=== PATIENT | female | born 1980 | race Caucasian/White ===

== ENCOUNTER 2017-11-27 07:16 | Day surgery (SDC) | payer BC, OTHER ==
[~2017-11-27 07:16] MED LIST: Sodium Chloride 0.9% 10 ML Syringe FLUSH PRN; Sodium Chloride 0.9% 2.5 ML Syringe FLUSH PRN; ceFAZolin 1 GM in Premix Bag 1 BAG IV ONE
[2017-11-27] MEDS ORDERED: Ketorolac 30 MG/ML SDV ONE (07:36)
[2017-11-27] MEDS ORDERED: Glycopyrrolate 0.2 MG/ML SDV ONE (07:36)
[2017-11-27] MEDS ORDERED: Lidocaine 2% 5 ML SDV ONE (07:36)
[2017-11-27] MEDS ORDERED: Ondansetron 4 MG/2 ML SDV ONE (07:36)
[2017-11-27] MEDS ORDERED: Rocuronium 10 MG/ML 10 ML Syringe ONE (07:36)
[2017-11-27] MEDS ORDERED: fentaNYL 250 MCG/5 ML SDV ONE (07:37)
[2017-11-27] MEDS ORDERED: Midazolam 1 MG/ML 2 ML SDV ONE (07:37)
[2017-11-27] MEDS ORDERED: Sugammadex Sodium 200 MG/2 ML VIAL ONE (07:38)
[2017-11-27] MEDS ORDERED: Propofol 200 MG/20 ML SDV ONE (07:44)
[2017-11-27] MEDS ORDERED: Scopolamine 1.5 MG Transdermal Patch TRDERM PRN (08:23)
[2017-11-27] MEDS ORDERED: ceFAZolin 1 GM Vial ONE (08:25)
[2017-11-27] MEDS ORDERED: Sodium Chloride 0.9% 20 ML ONE (08:26)
--- NOTE | 2017-11-27 08:27 | PCM.PREANE ---
Preanesthetic Assessment - Anesthesia/Transfusion/Family Hx Anesthesia History: Prior Anesthesia Reaction Type of Anesthesia Reaction: Excessive Nausea/Vomiting Family History of Anesthesia Reaction: No Transfusion History: No Prior Transfusion(s) - Review of Systems General: No Symptoms Pulmonary: No Symptoms Cardiovascular: No Symptoms Gastrointestinal: No Symptoms Neurological: Other (weakness RLE and leg spasms) - Physical Assessment NPO Status Date: 11/26/17 Height: 1.63 m Weight: 73.482 kg ASA Class: 2 Mental Status: Alert & Oriented x3 Airway Class: Mallampati = 1 Dentition: Reports: Normal Dentition ROM/Head Extension: Full Lungs: Clear to Auscultation, Normal Respiratory Effort Cardiovascular: Regular Rate, Regular Rhythm - Lab Values: Laboratory Last Values WBC 9.61 K/uL (4.0-11.0) 11/27/17 08:13 RBC 4.68 M/uL (4.30-5.90) 11/27/17 08:13 Hgb 15.3 g/dL (12.0-16.0) 11/27/17 08:13 Hct 44.4 % (36.0-46.0) 11/27/17 08:13 MCV 94.9 fL (80.0-98.0) 11/27/17 08:13 MCH 32.7 pg (27.0-32.0) H 11/27/17 08:13 MCHC 34.5 g/dL (31.0-37.0) 11/27/17 08:13 RDW Std Deviation 44.7 fl (28.0-62.0) 11/27/17 08:13 RDW Coeff of Selam 13 % (11.0-15.0) 11/27/17 08:13 Plt Count 318 K/uL (150-400) 11/27/17 08:13 MPV 10.00 fL (7.40-12.00) 11/27/17 08:13 Nucleated RBC % 0.0 /100WBC 11/27/17 08:13 Nucleated RBCs # 0 K/uL 11/27/17 08:13 - Allergies Allergies/Adverse Reactions: Allergies Allergy/AdvReac Type Severity Reaction Status Date / Time No Known Allergies Allergy Verified 11/21/17 15:20 - Anesthesia Plan Pre-Op Medication Ordered: Other (scop patch) - Acknowledgements Anesthesia Type Planned: General Anesthesia Pt an Appropriate Candidate for the Planned Anesthesia: Yes Alternatives and Risks of Anesthesia Discussed w Pt/Guardian: Yes Pt/Guardian Understands and Agrees with Anesthesia Plan: Yes Additional Comments: PMHL MS, chr fatigue/narcolepsy PreAnesthesia Questionnaire HEENT History: Reports: None Gastrointestinal History: Reports: None Genitourinary History: Reports: UTI, Recurrent 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: Neurological History: Reports: MS Psychiatric History: Reports: Anxiety, Depression - Past Surgical History Head Surgeries/Procedures: Reports: None HEENT Surgical History: Reports: Adenoidectomy, Tonsillectomy GI Surgical History: Reports: Cholecystectomy Female Surgical History: Reports: Breast Reduction, Endometrial Ablation, Other (See Below) Other Female Surgeries/Procedures: abdominoplasty - SUBSTANCE USE Smoking Status *Q: Never Smoker Recreational Drug Use History: No - HOME MEDS Home Medications: Home Meds Baclofen 10 mg PO TID 06/29/14 [History] PARoxetine [Paxil] 10 mg PO DAILY 06/29/14 [History] ALPRAZolam [Alprazolam] 0.5 mg PO BEDTIME 11/21/17 [History] Dexmethylphenidate HCl [Dexmethylphenidate] 10 mg PO DAILY 11/21/17 [History] Fish Oil/[place]-3 Fatty Acids [Fish Oil 1,000 MG] 1 tab PO DAILY 11/21/17 [ History] Norgestimate-Ethinyl Estradiol [Lzn-So-Exjrxa Tablet] 1 tab PO DAILY 11/21/17 [ History] Solifenacin Succinate [Vesicare] 10 mg PO DAILY 11/21/17 [History] - CURRENT (IN HOUSE) MEDS Current Meds: Current Medications Lactated Ringer's (Ringers, Lactated) 1,000 mls @ 125 mls/hr IV ASDIRECTED RIVAS Scopolamine (Transderm-Scop) 1.5 mg TRDERM Q72H PRN PRN Reason: Nausea/Vomiting Sodium Chloride (Saline Flush) 10 ml FLUSH ASDIRECTED PRN PRN Reason: Keep Vein Open Sodium Chloride (Saline Flush) 2.5 ml FLUSH ASDIRECTED PRN PRN Reason: Keep Vein Open Discontinued Medications Fentanyl (Sublimaze) Confirm Administered Dose 250 mcg .ROUTE .STK-MED ONE Stop: 11/27/17 07:38 Glycopyrrolate (Robinul) Confirm Administered Dose 0.2 mg .ROUTE .STK-MED ONE Stop: 11/27/17 07:37 Cefazolin Sodium/Dextrose 1 gm (/ Premix) 50 mls @ 100 mls/hr IV ONETIME ONE Stop: 11/27/17 05:29 Ketorolac Tromethamine (Toradol) Confirm Administered Dose 30 mg .ROUTE .STK- MED ONE Stop: 11/27/17 07:37 Lidocaine (Xylocaine-Mpf 2%) Confirm Administered Dose 5 ml .ROUTE .STK-MED ONE Stop: 11/27/17 07:37 Midazolam HCl (Versed 1 Mg/Ml) Confirm Administered Dose 2 mg .ROUTE .STK-MED ONE Stop: 11/27/17 07:38 Ondansetron HCl (Zofran) Confirm Administered Dose 4 mg .ROUTE .STK-MED ONE Stop: 11/27/17 07:37 Propofol (Diprivan 20 Ml) Confirm Administered Dose 200 mg .ROUTE .STK-MED ONE Stop: 11/27/17 07:45 Rocuronium [place] (Zemuron) Confirm Administered Dose 100 mg .ROUTE .STK-MED ONE Stop: 11/27/17 07:37 Sugammadex Sodium (Bridion) Confirm Administered Dose 200 mg .ROUTE .STK-MED ONE Stop: 11/27/17 07:39
[2017-11-27] MEDS ORDERED: Lactated Ringers 1,000 ML IV SCH ×2 (08:30→10:45)
[2017-11-27 08:48] LABS: CHLORIDE,CL 105 mmol/L (98-107); SODIUM,NA 142 mmol/L (136-145)
[2017-11-27] MEDS ORDERED: Dexamethasone 4 MG/ML 5 ML MDV ONE (09:19)
[2017-11-27] MEDS ORDERED: HYDROmorphone 2 MG/ML SDV ONE (09:54)
[2017-11-27] MEDS ORDERED: Furosemide 40 MG/4 ML VIAL ONE (10:01)
[2017-11-27] MEDS ORDERED: Fluorescein 5 ML Vial ONE (10:02)
[2017-11-27] MEDS ORDERED: Promethazine 25 MG/ML SDV IM PRN (10:37)
[2017-11-27] MEDS ORDERED: Morphine 4 MG/ML Syringe IVPUSH PRN (10:37)
[2017-11-27] MEDS ORDERED: Ondansetron 4 MG/2 ML SDV IVPUSH PRN (10:37)
[2017-11-27] MEDS ORDERED: Aluminum Hydroxide/Magnesium Hydroxide/Simethicone Susp 30 ML Cup PO PRN (10:37)
[2017-11-27] MEDS: fentaNYL 100 MCG/2 ML SDV IVPUSH PRN ×3 (10:41→11:03)
--- NOTE | 2017-11-27 10:41 | PCM.OPNOTE ---
- General Post-Op/Procedure Note Date of Surgery/Procedure: 11/27/17 Operative Procedure(s): TVH with cystoscopy Findings: 8week uterus, boggy. Right follicular ovarian cyst Pre Op Diagnosis: Menometrorrhagia Post-Op Diagnosis: Same Anesthesia Technique: General ET Tube Primary Surgeon: Nereyda Chao Fluid Replacement, Intraop: 1,200 EBL in mLs: 200 Complications: none known Condition: Good
[2017-11-27] MEDS ORDERED: fentaNYL 100 MCG/2 ML SDV ONE (10:42)
--- NOTE | 2017-11-27 11:14 | PCM.POSTAN ---
POST ANESTHESIA ASSESSMENT - MENTAL STATUS Mental Status: Alert, Oriented - RESPIRATORY Respiratory Status: Respiratory Rate WNL, Airway Patent, O2 Saturation Stable - CARDIOVASCULAR CV Status: Pulse Rate WNL, Blood Pressure Stable - GASTROINTESTINAL GI Status: No Symptoms - POST OP HYDRATION Hydration Status: Adequate & Stable
[2017-11-27] MEDS ORDERED: diphenhydrAMINE 25 MG Cap PO PRN (13:13)
[2017-11-27] MEDS: Acetaminophen/oxyCODONE 325-5 MG Tab PO PRN ×3 (13:56→22:08)
--- NOTE | 2017-11-27 14:49 | OR ---
SURGEON: Nereyda Chao M.D. DATE OF PROCEDURE: 11/27/2017 PREOPERATIVE DIAGNOSIS: Menometrorrhagia. POSTOPERATIVE DIAGNOSIS: Menometrorrhagia. PROCEDURE: Total vaginal hysterectomy with cystoscopy. BUSINESS SYSTEMS TECHNICIAN: Bridgett Yepez MD ESTIMATED BLOOD LOSS: 200 mL. FLUIDS: 1200 mL of crystalloid. FINDINGS: 8-week boggy uterus. Right ovarian follicular cyst. COMPLICATION: None. DISPOSITION: The patient to PACU in stable condition. PROCEDURE IN DETAIL: Alma is a 37-year-old female, who has had ongoing menometrorrhagia. She did have history of endometrial ablation in 2007, which now she has started to have irregular heavy bleeding once again. Endometrial biopsy is benign at this juncture. She prefers to proceed with definitive intervention since the ablation has failed for her. Risks of the hysterectomy had been discussed and proper consent obtained. The patient was taken to the operating room, she underwent general endotracheal anesthesia and was placed in modified dorsal lithotomy position and was prepped and draped in usual sterile fashion. SCDs to lower extremities. Mott to gravity. Received prophylactic antibiotic. Time-out was performed. Weighted speculum and anterior [place] were placed into the vagina. Cervix grasped with Jesse clamp. Cervix tented downwards. Cervix was circumscribed with Bovie cautery anterior and posterior. Overlying mucosa was dissected away from underlying peritoneum. Posterior peritoneum was tented downwards and entered sharply. Longer weighted speculum was replaced with the shorter. Anteriorly, tented the peritoneum upwards and entered with Metzenbaum scissors. [place] was placed to mobilize the bladder away from the operative field. Hailey clamps were now utilized to secure the uterosacral ligaments on either side. Pedicles transected and suture ligated with 2-0 Vicryl. Further pedicle of the base of cardinal ligament was secured on either side, transected, and suture ligated. Remainder of the cardinal ligament with the base of the broad ligament was now secured, transected, and suture ligated. The round ligament up to the utero tubo-ovarian pedicle was able to be secured, transected, and suture ligated followed by a final pedicle on either side incorporating the utero tubo- ovarian pedicle. The uterus was now be able to be handed off to the factory focus technician. Final pedicle sutured. The uterus was quite vascular with a number of fairly large vessels. There was some oozing noted along the right utero tubo-ovarian pedicle, this was secured with Hailey clamp and suture ligated. Hemostasis thereafter evident. Bleeding also along the right uterosacral ligament pedicle was able to be secured by plicating the uterosacral ligament to the vaginal cuff. In similar fashion, this was also performed in the patient's left uterosacral ligaments to the vaginal cuff. The pedicles once again inspected and found to be hemostatic. There appears to be a small follicular cyst of the right ovary. Otherwise, tubes and ovaries are normal in appearance. The patient tends to have quite a bit of oozing; therefore, opted not to aspirate the ovary to decrease the risk for any further bleeding. The pedicles were once again inspected and found to be hemostatic. The cuff was now closed using 0 Vicryl in continuous running locked fashion. There was oozing in the midline. The cuff was replicated with [id number] suture. The Mott catheter balloon was now deflated, Mott catheter removed. Cystoscope was introduced. IV fluorescein and Lasix had been introduced. Fluorescein dyed urine was seen streaming from the ureteral orifices across the right ureteral orifice followed by the left ureteral orifice helping to ensure ureteral patency. The dome of the bladder was also inspected and found to be intact. The cystoscope was now removed after draining the bladder. Mott catheter was replaced. The vaginal cuff once again inspected and found to be hemostatic. The patient tolerated the procedure well. She will PACU in stable condition. Sponge, instrument, and needle counts were correct x3. VICTORIANO / ANGELO /[id number]
--- NOTE | 2017-11-27 17:04 | PCM48HPAN ---
Post Anesthesia Note - EVALUATION WITHIN 48HRS OF ANESTHETIC Vital Signs in Normal Range: Yes Patient Participated in Evaluation: Yes Respiratory Function Stable: Yes Airway Patent: Yes Cardiovascular Function Stable: Yes Hydration Status Stable: Yes Pain Control Satisfactory: Yes Nausea and Vomiting Control Satisfactory: Yes Mental Status Recovered: Yes Resp Rate: 15
[2017-11-27] MEDS: Docusate Sodium 100 MG Cap PO SCH (21:09)
[2017-11-28] MEDS: Acetaminophen/oxyCODONE 325-5 MG Tab PO PRN ×2 (02:59→07:31)
[2017-11-28 05:21] LABS: CHLORIDE,CL 104 mmol/L (98-107); SODIUM,NA 139 mmol/L (136-145)
--- NOTE | 2017-11-28 06:46 | PCM.SURGPN ---
- General Info Date of Service: 11/28/17 POD#: 1 Functional Status: Reports: Pain Controlled, Tolerating Diet, Ambulating - Review of Systems General: Denies: Fever, Weakness Pulmonary: Denies: Shortness of Breath Cardiovascular: Denies: Chest Pain, Palpitations, Lightheadedness Gastrointestinal: Reports: Flatus. Denies: Abdominal Pain, Nausea, Vomiting Genitourinary: Denies: Flank Pain Skin: Reports: No Symptoms Psychiatric: Reports: No Symptoms - Patient Data Vitals - Most Recent: Last Vital Signs Temp 36.4 C 11/28/17 03:30 Pulse 65 11/28/17 03:30 Resp 16 11/28/17 03:30 BP 101/62 11/28/17 03:30 Pulse Ox 95 11/28/17 03:30 Weight - Most Recent: 73.482 kg I&O - Last 24 Hours: Intake & Output 11/27/17 11/27/17 11/28/17 14:59 22:59 06:59 Intake Total 2500 1300 Output Total 920 200 800 Balance 1580 -200 500 Lab Results Last 24 Hrs: Laboratory Results - last 24 hr 11/27/17 11/27/17 11/27/17 Range/Units 08:13 08:13 08:13 WBC 9.61 (4.0-11.0) K/uL RBC 4.68 (4.30-5.90) M/uL Hgb 15.3 (12.0-16.0) g/dL Hct 44.4 (36.0-46.0) % MCV 94.9 (80.0-98.0) fL MCH 32.7 H (27.0-32.0) pg MCHC 34.5 (31.0-37.0) g/dL RDW Std Deviation 44.7 (28.0-62.0) fl RDW Coeff of Selam 13 (11.0-15.0) % Plt Count 318 (150-400) K/uL MPV 10.00 (7.40-12.00) fL Neut % (Auto) (48.0-80.0) % Lymph % (Auto) (16.0-40.0) % Will % (Auto) (0.0-15.0) % Eos % (Auto) (0.0-7.0) % Baso % (Auto) (0.0-1.5) % Neut # (Auto) (1.4-5.7) K/uL Lymph # (Auto) (0.6-2.4) K/uL Will # (Auto) (0.0-0.8) K/uL Eos # (Auto) (0.0-0.7) K/uL Baso # (Auto) (0.0-0.1) K/uL Nucleated RBC % 0.0 /100WBC Nucleated RBCs # 0 K/uL Sodium 142 (136-145) mmol/L Potassium 3.9 (3.5-5.1) mmol/L Chloride 105 (98-107) mmol/L Carbon Dioxide 25.4 (21.0-32.0) mmol/L BUN 13 (7.0-18.0) mg/dL Creatinine 0.9 (0.6-1.0) mg/dL Est Cr Clr Drug Dosing 73.19 mL/min Estimated GFR (MDRD) > 60.0 ml/min Glucose 111 H (74-106) mg/dL Calcium 9.9 (8.5-10.1) mg/dL HCG, Qual NEGATIVE (NEG) Blood Type Antibody Screen 11/27/17 11/28/17 11/28/17 Range/Units 08:13 04:50 04:50 WBC 12.16 H (4.0-11.0) K/uL RBC 3.64 L (4.30-5.90) M/uL Hgb 11.5 L (12.0-16.0) g/dL Hct 35.0 L (36.0-46.0) % MCV 96.2 (80.0-98.0) fL MCH 31.6 (27.0-32.0) pg MCHC 32.9 (31.0-37.0) g/dL RDW Std Deviation 45.6 (28.0-62.0) fl RDW Coeff of Selam 13 (11.0-15.0) % Plt Count 290 (150-400) K/uL MPV 10.10 (7.40-12.00) fL Neut % (Auto) 61.5 (48.0-80.0) % Lymph % (Auto) 30.7 (16.0-40.0) % Will % (Auto) 6.9 (0.0-15.0) % Eos % (Auto) 0.6 (0.0-7.0) % Baso % (Auto) 0.3 (0.0-1.5) % Neut # (Auto) 7.5 H (1.4-5.7) K/uL Lymph # (Auto) 3.7 H (0.6-2.4) K/uL Will # (Auto) 0.8 (0.0-0.8) K/uL Eos # (Auto) 0.1 (0.0-0.7) K/uL Baso # (Auto) 0.0 (0.0-0.1) K/uL Nucleated RBC % 0.0 /100WBC Nucleated RBCs # 0 K/uL Sodium 139 (136-145) mmol/L Potassium 3.8 (3.5-5.1) mmol/L Chloride 104 (98-107) mmol/L Carbon Dioxide 30.2 (21.0-32.0) mmol/L BUN 12 (7.0-18.0) mg/dL Creatinine 0.9 (0.6-1.0) mg/dL Est Cr Clr Drug Dosing 73.19 mL/min Estimated GFR (MDRD) > 60.0 ml/min Glucose 110 H (74-106) mg/dL Calcium 8.9 (8.5-10.1) mg/dL HCG, Qual (NEG) Blood Type O POSITIVE Antibody Screen NEGATIVE Med Orders - Current: Current Medications Al Hydroxide/Mg Hydroxide (Mag-Al Plus) 30 ml PO Q4H PRN PRN Reason: Indigestion Diphenhydramine HCl (Benadryl) 25 mg PO Q6H PRN PRN Reason: Itching Last Admin: 11/27/17 13:56 Dose: 25 mg Docusate Sodium (Colace) 100 mg PO BID RIVAS Last Admin: 11/27/17 21:09 Dose: 100 mg Fentanyl (Sublimaze) 50 mcg IVPUSH SEECOMMENT PRN PRN Reason: Pain (moderate 4-6) Last Admin: 11/27/17 11:03 Dose: 50 mcg Lactated Ringer's (Ringers, Lactated) 1,000 mls @ 125 mls/hr IV ASDIRECTED [facility] Last Admin: 11/27/17 08:34 Dose: 125 mls/hr Lactated Ringer's (Ringers, Lactated) 1,000 mls @ 125 mls/hr IV ASDIRECTED RIVAS Morphine Sulfate (Morphine) 4 mg IVPUSH Q2H PRN PRN Reason: Pain (severe 7-10) Ondansetron HCl (Zofran) 4 mg IVPUSH Q6H PRN PRN Reason: Nausea/Vomiting Oxycodone/Acetaminophen (Percocet 325-5 Mg) 1 tab PO Q4H PRN PRN Reason: Pain (moderate 4-6) Last Admin: 11/27/17 18:07 Dose: 1 tab Oxycodone/Acetaminophen (Percocet 325-5 Mg) 2 tab PO Q4H PRN PRN Reason: Pain (moderate 4-6) Last Admin: 11/28/17 02:59 Dose: 2 tab Promethazine HCl (Phenergan) 25 mg IM Q6H PRN PRN Reason: Nausea/Vomiting Scopolamine (Transderm-Scop) 1.5 mg TRDERM Q72H PRN PRN Reason: Nausea/Vomiting Last Admin: 11/27/17 08:26 Dose: 1.5 mg Sodium Chloride (Saline Flush) 10 ml FLUSH ASDIRECTED PRN PRN Reason: Keep Vein Open Sodium Chloride (Saline Flush) 2.5 ml FLUSH ASDIRECTED PRN PRN Reason: Keep Vein Open Discontinued Medications Cefazolin Sodium (Ancef) Confirm Administered Dose 2 gm .ROUTE .STK-MED ONE Stop: 11/27/17 08:26 Dexamethasone (Dexamethasone) Confirm Administered Dose 20 mg .ROUTE .STK-MED ONE Stop: 11/27/17 09:20 Fentanyl (Sublimaze) Confirm Administered Dose 250 mcg .ROUTE .STK-MED ONE Stop: 11/27/17 07:38 Fentanyl (Sublimaze) Confirm Administered Dose 100 mcg .ROUTE .STK-MED ONE Stop: 11/27/17 10:43 Fluorescein Sodium ([place]-Fluor) Confirm Administered Dose 5 ml .ROUTE .STK-MED ONE Stop: 11/27/17 10:03 Furosemide (Lasix) Confirm Administered Dose 40 mg .ROUTE .STK-MED ONE Stop: 11/27/17 10:02 Glycopyrrolate (Robinul) Confirm Administered Dose 0.2 mg .ROUTE .STK-MED ONE Stop: 11/27/17 07:37 Hydromorphone HCl (Dilaudid) Confirm Administered Dose 2 mg .ROUTE .STK-MED ONE Stop: 11/27/17 09:55 Cefazolin Sodium/Dextrose 1 gm (/ Premix) 50 mls @ 100 mls/hr IV ONETIME ONE Stop: 11/27/17 05:29 Sodium Chloride (Normal Saline) Confirm Administered Dose 20 mls @ as directed .ROUTE .STK-MED ONE Stop: 11/27/17 08:27 Ketorolac Tromethamine (Toradol) Confirm Administered Dose 30 mg .ROUTE .STK- MED ONE Stop: 11/27/17 07:37 Lidocaine (Xylocaine-Mpf 2%) Confirm Administered Dose 5 ml .ROUTE .STK-MED ONE Stop: 11/27/17 07:37 Midazolam HCl (Versed 1 Mg/Ml) Confirm Administered Dose 2 mg .ROUTE .STK-MED ONE Stop: 11/27/17 07:38 Ondansetron HCl (Zofran) Confirm Administered Dose 4 mg .ROUTE .STK-MED ONE Stop: 11/27/17 07:37 Propofol (Diprivan 20 Ml) Confirm Administered Dose 200 mg .ROUTE .STK-MED ONE Stop: 11/27/17 07:45 Rocuronium [place] (Zemuron) Confirm Administered Dose 100 mg .ROUTE .STK-MED ONE Stop: 11/27/17 07:37 Sugammadex Sodium (Bridion) Confirm Administered Dose 200 mg .ROUTE .STK-MED ONE Stop: 11/27/17 07:39 - Exam General: Alert, Oriented Lungs: Normal Respiratory Effort Cardiovascular: Regular Rate, Regular Rhythm GI/Abdominal Exam: Normal Bowel Sounds, Soft, No Distention Extremities: Pedal Edema (trace). No: Shane's Sign Skin: Warm, Dry, Intact Psy/Mental Status: Alert - Problem List & Annotations (1) S/P vaginal hysterectomy SNOMED Code(s): 078062031, 446096121 Code(s): Z90.710 - ACQUIRED ABSENCE OF BOTH CERVIX AND UTERUS Status: Acute Current Visit: Yes - Problem List Review Problem List Initiated/Reviewed/Updated: Yes - My Orders Last 24 Hours: Active Orders 24 hr Category Date Time Status Patient Status [ADT] Routine ADT 11/27/17 10:37 Active May Shower [RC] ASDIRECTED Care 11/27/17 10:37 Active Notify Provider Intake and Out [RC] ASDIRECTED Care 11/27/17 10:37 Active Notify Provider Vital Signs [RC] ASDIRECTED Care 11/27/17 10:37 Active Oxygen Therapy [RC] ASDIRECTED Care 11/27/17 10:37 Active RT Incentive Spirometry [RC] Q2HWA Care 11/27/17 10:37 Active Ready for Discharge [RC] PER UNIT ROUTINE Care 11/28/17 06:41 Ordered Up With Assistance [RC] PER UNIT ROUTINE Care 11/27/17 10:37 Active Up ad Anna [RC] PER UNIT ROUTINE Care 11/27/17 10:37 Active Urinary Catheter Removal [RC] Per Unit Routine Care 11/27/17 10:37 Active Vital Signs [RC] PER UNIT ROUTINE Care 11/27/17 10:37 Active Regular Diet [DIET] Diet 11/27/17 Lunch Active Acetaminophen/oxyCODONE [Percocet 325-5 MG] Med 11/27/17 10:37 Active 1 tab PO Q4H PRN Acetaminophen/oxyCODONE [Percocet 325-5 MG] Med 11/27/17 10:37 Active 2 tab PO Q4H PRN Alum Hydrox/Mag Hydrox/Simeth [Mag-Al Plus] Med 11/27/17 10:37 Active 30 ml PO Q4H PRN Docusate Sodium [Colace] Med 11/27/17 21:00 Active 100 mg PO BID Lactated Ringers [Ringers, Lactated] 1,000 ml Med 11/27/17 08:30 Active IV ASDIRECTED Lactated Ringers [Ringers, Lactated] 1,000 ml Med 11/27/17 10:45 Active IV ASDIRECTED Morphine Med 11/27/17 10:37 Active 4 mg IVPUSH Q2H PRN Ondansetron [Zofran] Med 11/27/17 10:37 Active 4 mg IVPUSH Q6H PRN Promethazine [Phenergan] Med 11/27/17 10:37 Active 25 mg IM Q6H PRN Scopolamine [Transderm-Scop] Med 11/27/17 08:23 Active 1.5 mg TRDERM Q72H PRN diphenhydrAMINE [Benadryl] Med 11/27/17 13:13 Active 25 mg PO Q6H PRN fentaNYL [Sublimaze] Med 11/27/17 10:40 Active 50 mcg IVPUSH SEECOMMENT PRN Ice Therapy [OM.PC] Per Unit Routine Oth 11/27/17 10:37 Ordered Peripheral IV Discontinue [OM.PC] Routine Oth 11/27/17 10:37 Ordered Sequential Compression Device [OM.PC] Per Unit Routine Oth 11/27/17 10:37 Ordered Resuscitation Status Routine Resus Stat 11/27/17 10:37 Ordered Medication Orders Al Hydroxide/Mg Hydroxide (Mag-Al Plus) 30 ml PO Q4H PRN PRN Reason: Indigestion Diphenhydramine HCl (Benadryl) 25 mg PO Q6H PRN PRN Reason: Itching Last Admin: 11/27/17 13:56 Dose: 25 mg Docusate Sodium (Colace) 100 mg PO BID [facility] Last Admin: 11/27/17 21:09 Dose: 100 mg Fentanyl (Sublimaze) 50 mcg IVPUSH SEECOMMENT PRN PRN Reason: Pain (moderate 4-6) Last Admin: 11/27/17 11:03 Dose: 50 mcg Admin: 11/27/17 10:48 Dose: 50 mcg Admin: 11/27/17 10:41 Dose: 50 mcg Lactated Ringer's (Ringers, Lactated) 1,000 mls @ 125 mls/hr IV ASDIRECTED [facility] Last Admin: 11/27/17 08:34 Dose: 125 mls/hr Lactated Ringer's (Ringers, Lactated) 1,000 mls @ 125 mls/hr IV ASDIRECTED [facility] Morphine Sulfate (Morphine) 4 mg IVPUSH Q2H PRN PRN Reason: Pain (severe 7-10) Ondansetron HCl (Zofran) 4 mg IVPUSH Q6H PRN PRN Reason: Nausea/Vomiting Oxycodone/Acetaminophen (Percocet 325-5 Mg) 1 tab PO Q4H PRN PRN Reason: Pain (moderate 4-6) Last Admin: 11/27/17 18:07 Dose: 1 tab Admin: 11/27/17 13:56 Dose: 1 tab Oxycodone/Acetaminophen (Percocet 325-5 Mg) 2 tab PO Q4H PRN PRN Reason: Pain (moderate 4-6) Last Admin: 11/28/17 02:59 Dose: 2 tab Admin: 11/27/17 22:08 Dose: 2 tab Promethazine HCl (Phenergan) 25 mg IM Q6H PRN PRN Reason: Nausea/Vomiting Scopolamine (Transderm-Scop) 1.5 mg TRDERM Q72H PRN PRN Reason: Nausea/Vomiting Last Admin: 11/27/17 08:26 Dose: 1.5 mg Sodium Chloride (Saline Flush) 10 ml FLUSH ASDIRECTED PRN PRN Reason: Keep Vein Open Sodium Chloride (Saline Flush) 2.5 ml FLUSH ASDIRECTED PRN PRN Reason: Keep Vein Open - Assessment Assessment (Free Text/Narrative):: POD 1 status post TVH cystoscopy - Plan Plan (Free Text/Narrative):: Patient doing well overall, VS and labs are stable. Would like to go home this morning. Once able to void, may discharge to home. Discharge instructions reviewed. Infection and bleeding warnings reviewed. Follow up at [facility] 2 and 6 weeks.
[2017-11-28] MEDS: Docusate Sodium 100 MG Cap PO SCH ×2 (07:30→08:18)
[2017-11-28 08:14] VITALS: BP 103/68
== END 2017-11-28 10:15 | disposition home or self-care (01) ==
LOC: MW.SDS 07:16 → MW.OB 10:42 → MW.SDS 11-28 10:15
PROVIDERS: ATTEND Obstetrics & Gynecology
DX: N92.1 Excessive and frequent menstruation with irregular cycle (principal); N83.01 Follicular cyst of right ovary; N72 Inflammatory disease of cervix uteri; G35 Multiple sclerosis; F32.9 Major depressive disorder, single episode, unspecified; Z79.899 Other long term (current) drug therapy; Z98.890 Other specified postprocedural states
CPT/HCPCS: 36415; 58260; 80048; 84703; 85025; 85027; 86850; 86900; 86901; A9270; J0690; J1100; J1170; J1885; J1940; J2250; J2405; J3010; J7120; 88307; J2704